=== PATIENT | female | born 1985 | race Caucasian/White ===

== ENCOUNTER 2025-07-04 20:02 | Emergency (ER) | payer MEDICAID ==
[2025-07-04 20:21] LABS: #Basophils 0.05 10x3/uL (0.0-0.2); #Eosinophils 0.21 10x3/uL (0.0-0.5); #Monocytes 0.26 10x3/uL (0.0-1.1); #Neutrophils 4.14 10x3/uL (1.5-8.4); %Basophils 0.6 % (0.0-2.0); %Eosinophils 2.6 % (0.0-6.0); %Lymphocytes 41.8 % (18.0-47.0); %Monocytes 3.2 % (0.0-10.0); %Neutrophils 51.6 % (40.0-75.0); Hematocrit 36.6 % (34.9-44.5); Hemoglobin 12.5 g/dL (12.0-15.5); Mean Corpuscular Hemoglobin 31.8 pg (27.0-33.0); Mean Corpuscular Volume 93.1 fL (81.6-98.3); Platelet Count 257 10x3/uL (150-450); Red Blood Cell (RBC) Count 3.93 10x6/uL (3.90-5.03); White Blood Cell (WBC) Count 8.04 10x3/uL (3.5-10.5)
[2025-07-04] MEDS ORDERED: VALPROATE SODIUM IVPB SCH (20:30)
[2025-07-04] MEDS ORDERED: SODIUM CHLORIDE IVPB SCH (20:30)
[2025-07-04] MEDS ORDERED: ADMIXTURE FEE IVPB SCH (20:30)
[2025-07-04 20:39] LABS: Acetaminophen Less than 10 mcg/mL (Less than 10); Magnesium 2.1 mg/dL (1.6-2.6); Salicylate Less than 8.0 mg/dL (Less than 8.0)
[2025-07-04 20:40] LABS: ALT (SGPT) 17 U/L (Less than 34); AST (SGOT) 22 U/L (11-34); Albumin 4.2 g/dL (3.1-4.5); Alkaline Phosphatase 40 U/L (40-110); Anion Gap 15 mmol/L (10-20); BUN (Urea Nitrogen) 10 mg/dL (7.0-18.7); Bilirubin, Total 0.3 mg/dL (0.3-1.2); Calc. Creatinine Clearance 0 mL/min (70-130); Calcium 9.0 mg/dL (7.8-10.44); Carbon Dioxide 22 mmol/L (22-29); Chloride 107 mmol/L (98-107); Globulin 2.5 g/dL (2.4-3.5); Glucose 93 mg/dL (70-105); Potassium 4.2 mmol/L (3.5-5.1); Sodium 140 mmol/L (136-145)
[2025-07-04 21:18] LABS: Cocaine Metabolite Screen Negative (Negative); THC/Cannabinoid Screen Negative (Negative); Tricyclic Screen Negative (Negative)
[2025-07-04 21:55] LABS: Actual Bicarbonate (HCO3v) 22.6 mEq/L (22-28); Analyzer IN Cardio CS ER; Base Excess -0.1 mEq/L (-2 - +2); Calcium, Ionized (venous) 1.06 mmol/L (1.16-1.32); Chloride (VBG) 105 mmol/L (98-106); Critical Notified By: CP.PH; Hematocrit-VBG 44 % (36.0-47.0); Hemoglobin (Hb) 15.0 g/dL (11.7-15.5); Potassium (VBG) 3.99 mmol/L (3.70-5.30); Puncture Site Other Site; RapidComm Collect By LAB.YY; Sodium 140 mmol/L (133-146)
== END 2025-07-04 23:45 | disposition short-term general hospital (02) ==
LOC: CSHERS 20:02 → EDSEX 20:02 → CSHERS 23:45
DX: G40.901 Epilepsy, unspecified, not intractable, with status epilepticus (principal); Z79.899 Other long term (current) drug therapy
CPT/HCPCS: 31500; 36415; 36416; 70450; 71045; 80053; 80164; 80306; 80307; 82805; 83735; 85025; 87426; 93005; 94002; 94760; 95819; 96365; 96366; 96375; 99292; J2060; J2250; J2704; J3411